=== PATIENT | male | born 1985 | race African-American/Black ===

== ENCOUNTER → 2019-02-09 | Outpatient (CLI) | payer BC ==
[~2019-02-09] MED LIST: AMLO1CAP12 PO; LORA-705 PO
== END | disposition home or self-care (01) ==
LOC: SHCH 13:54
PROVIDERS: ATTEND Internal Medicine Cardiovascular Disease
DX: I11.9 Hypertensive heart disease without heart failure (principal)
CPT/HCPCS: 93306

== ENCOUNTER 2020-12-16 18:11 | Observation (INO) | payer BC ==
[~2020-12-16] VITALS: Ht 185.4 cm; Wt 131.7 kg
[~2020-12-16 18:11] MED LIST changes: +AMLO-104 PO; -AMLO1CAP12 PO; +LORA-699 PO; -LORA-705 PO
[2020-12-16] MEDS ORDERED: TETANUS/DIPHTHERIA TOXOID [ADULT] 0.5 ML VIAL IM ONE (19:04)
[2020-12-16] MEDS ORDERED: CEFAZOLIN SODIUM 1 GM VIAL ONE (19:04)
[2020-12-16] MEDS ORDERED: 0.9%NACL 100ML 100 ML IV ONE (19:08)
[2020-12-16 19:19] LABS: CREATININE 1.5 mg/dL (0.5-1.5); POTASSIUM 3.1 mmol/L (3.5-5.1)
[2020-12-16 19:20] LABS: BASOPHILS % (AUTO) 0.8 % (0.0-5.0); EOSINOPHILS % (AUTO) 2.6 % (0.0-8.0); LYMPHOCYTES % (AUTO) 23.4 % (21.0-51.0); MEAN CORPUSCULAR HEMOGLOBIN 29.9 pg (27.0-33.0); MEAN CORPUSCULAR HGB CONC 32.7 g/dL (32.0-36.0); MEAN CORPUSCULAR VOLUME 91.5 fL (79-99); MONOCYTES % (AUTO) 6.2 % (3.0-13.0); NEUTROPHILS % (AUTO) 66.7 % (40.0-77.0); PLATELET COUNT (AUTO) 193 K/uL (130-400); RED BLOOD CELL COUNT(AUTO) 4.81 MIL/uL (4.50-6.20); RED CELL DISTRIBUTION WIDTH 14.7 % (11.0-15.5); WHITE BLOOD COUNT (AUTO) 7.7 K/uL (4.8-10.8)
[2020-12-16 19:23] LABS: BILIRUBIN,TOTAL 0.3 mg/dL (0.2-1.0); TOTAL PROTEIN, SERUM 7.8 g/dL (6.0-8.3)
[2020-12-16] MEDS ORDERED: POTASSIUM BICARB/CIT AC 25 MEQ TABLET.EFF ONE (20:06)
[2020-12-16] MEDS ORDERED: ACETAMINOPHEN 325 MG TAB PO PRN ×2 (21:45)
[2020-12-16] MEDS ORDERED: ONDANSETRON 4MG INJ IV PRN (21:45)
[2020-12-16] MEDS: CEFAZOLIN SODIUM 1 GM VIAL IVP SCH (22:00)
[2020-12-16] MEDS ORDERED: ONDANSETRON 4MG INJ ONE (22:33)
[2020-12-16] MEDS ORDERED: MORPHINE 2 MG SYG ONE (22:33)
[2020-12-17] VITALS (20 sets, daily range): BP systolic 137–184; BP diastolic 86–119
[2020-12-17] MEDS ORDERED: LABETALOL 20MG VIAL IV PRN (01:45)
[2020-12-17] MEDS ORDERED: 0.9%NACL 1000ML 1,000 ML IV ONE (02:08)
[2020-12-17] MEDS ORDERED: MORPHINE 4 MG SYG ONE (03:18)
[2020-12-17] MEDS: MORPHINE 2 MG SYG IV PRN ×2 (03:25→22:09)
[2020-12-17] MEDS ORDERED: AMIL5TAB8 PO (04:38)
[2020-12-17] MEDS ORDERED: BUPR-49 PO (04:38)
[2020-12-17] MEDS ORDERED: TRAM50TA4 PO (04:38)
[2020-12-17] MEDS ORDERED: ROSU40TA21 PO (04:38)
[2020-12-17] MEDS ORDERED: GABA300S PO (04:38)
[2020-12-17] MEDS ORDERED: CHLO50TA PO (04:38)
[2020-12-17] MEDS ORDERED: AMLO-258 PO (04:38)
[2020-12-17] MEDS ORDERED: CARV12.511 PO (04:38)
[2020-12-17 06:14] LABS: BASOPHILS % (AUTO) 0.7 % (0.0-5.0); EOSINOPHILS % (AUTO) 2.2 % (0.0-8.0); HEMATOCRIT 40.2 % (42-54); LYMPHOCYTES % (AUTO) 36.3 % (21.0-51.0); MEAN CORPUSCULAR HEMOGLOBIN 30.3 pg (27.0-33.0); MEAN CORPUSCULAR HGB CONC 32.8 g/dL (32.0-36.0); MEAN CORPUSCULAR VOLUME 92.4 fL (79-99); MONOCYTES % (AUTO) 6.6 % (3.0-13.0); NEUTROPHILS % (AUTO) 54.1 % (40.0-77.0); PLATELET COUNT (AUTO) 163 K/uL (130-400); RED BLOOD CELL COUNT(AUTO) 4.35 MIL/uL (4.50-6.20); RED CELL DISTRIBUTION WIDTH 14.8 % (11.0-15.5); WHITE BLOOD COUNT (AUTO) 6.8 K/uL (4.8-10.8)
[2020-12-17 06:30] LABS: ALBUMIN 3.3 g/dL (3.5-5.0); BILIRUBIN,TOTAL 0.3 mg/dL (0.2-1.0); CREATININE 1.1 mg/dL (0.5-1.5); TOTAL PROTEIN, SERUM 6.6 g/dL (6.0-8.3)
[2020-12-17] MEDS: CEFAZOLIN SODIUM 1 GM VIAL IVP SCH ×3 (06:53→22:05)
[2020-12-17] MEDS: INSULIN HUMULIN R 100 UNIT/ML 3ML SQ SCH ×4 (07:30→21:00)
[2020-12-17] MEDS: 0.9%NACL 1000ML 1,000 ML IV SCH ×3 (07:30→22:07)
[2020-12-17] MEDS: FAMOTIDINE 20MG VIAL IV SCH ×2 (09:37→22:06)
[2020-12-17] MEDS ORDERED: POTASSIUM CHLORIDE 20MEQ/100ML 100 ML IV PRN (12:30)
[2020-12-17] MEDS ORDERED: KCL 20 MEQ ERTAB PO PRN (12:30)
[2020-12-17] MEDS ORDERED: POTASSIUM CHLORIDE 10% ELIXIR 20 MEQ/15 ML UDCUP PO PRN (12:30)
[2020-12-17] MEDS ORDERED: LIDOCAINE HCL-MPF 1% 2ML VIAL ONE (14:24)
[2020-12-17] MEDS: LIDOCAINE HCL-MPF 1% 2ML VIAL IV SCH ×2 (16:30→21:00)
[2020-12-17] MEDS ORDERED: MIDAZOLAM HCL 1 MG/ML 2ML VIAL ONE (17:59)
[2020-12-17] MEDS ORDERED: FENTANYL CITRATE PF 50 MCG/1 ML 2ML VIAL ONE (18:01)
[2020-12-17] MEDS ORDERED: PROPOFOL 10 MG/ML 20ML VIAL IV ONE (18:09)
[2020-12-17] MEDS ORDERED: ONDANSETRON 4MG INJ ONE (18:43)
[2020-12-17] MEDS ORDERED: ATORVASTATIN 40 MG TABLET PO SCH (21:00)
[2020-12-17] MEDS ORDERED: GABAPENTIN 300 MG CAPSULE PO SCH (21:00)
[2020-12-17] MEDS: CARVEDILOL 12.5 MG TABLET PO SCH (22:06)
[2020-12-18] VITALS (7 sets, daily range): BP systolic 133–170; BP diastolic 68–110
[2020-12-18] MEDS: MORPHINE 2 MG SYG IV PRN (02:39)
[2020-12-18] MEDS: CEFAZOLIN SODIUM 1 GM VIAL IVP SCH ×2 (06:28→13:43)
[2020-12-18] MEDS: INSULIN HUMULIN R 100 UNIT/ML 3ML SQ SCH ×2 (06:30→11:30)
[2020-12-18] MEDS: 0.9%NACL 1000ML 1,000 ML IV SCH (08:00)
[2020-12-18] MEDS: CARVEDILOL 12.5 MG TABLET PO SCH (08:15)
[2020-12-18] MEDS ORDERED: AMLODIPINE 5 MG TAB PO SCH (09:00)
[2020-12-18] MEDS ORDERED: AMILORIDE 5MG TAB PO SCH (09:00)
[2020-12-18] MEDS ORDERED: BUPROPION HCL 150 MG TABLET.SA PO SCH (09:00)
== END 2020-12-18 15:40 | disposition home or self-care (01) ==
LOC: EDH 18:11 → EDHIP 21:55 → 3CH 12-17 02:08
PROVIDERS: ADMIT Hospitalist; ATTEND Hospitalist
DX: S63.124A Dislocation of interphalangeal joint of right thumb, initial encounter (principal); E87.6 Hypokalemia; E11.65 Type 2 diabetes mellitus with hyperglycemia; I10 Essential (primary) hypertension; E78.5 Hyperlipidemia, unspecified; E78.00 Pure hypercholesterolemia, unspecified; Z23 Encounter for immunization; Z79.899 Other long term (current) drug therapy; Z91.041 Radiographic dye allergy status; X50.9XXA Other and unspecified overexertion or strenuous movements or postures, initial encounter; Y93.89 Activity, other specified; Y92.89 Other specified places as the place of occurrence of the external cause
CPT/HCPCS: 11010; 26785; 29130; 36415 ×2; 71045; 73130; 73140 ×2; 80053 ×2; 82948 ×6; 84484; 85025 ×2; 90471; 90714; 93005; 96361 ×2; 96365; 96366; 96372; 96375 ×2; 96376 ×2; 99285; A4606; A4649; A6223; A6445; G0378 ×40; J0690 ×6; J1815; J2250; J2270; J2405 ×2; J2704; J3010; J3480; J3490 ×5; J7030; J7120

== ENCOUNTER 2022-12-31 23:49 | Emergency (ER) | payer BC ==
[~2022-12-31] VITALS: Ht 185.4 cm; Wt 128.4 kg
[~2022-12-31 23:49] MED LIST changes: +AMIL5TAB8 PO; -AMLO-104 PO; +AMLO-258 PO; +BUPR-49 PO; +CARV12.511 PO; +CHLO50TA PO; +GABA300S3 PO; -LORA-699 PO; +ROSU40TA21 PO; +TRAM50TA4 PO
[2023-01-01] MEDS ORDERED: IBUP-1493 PO (02:58)
[2023-01-01] MEDS ORDERED: CEPH500B PO (02:58)
[2023-01-01] MEDS ORDERED: DIPH,PERTUSS(ACELL),TET VAC/PF 0.5 ML VIAL IM ONE (03:00)
[2023-01-01] MEDS ORDERED: LIDOCAINE HCL 1% 20 ML VIAL INJ SCH (03:00)
[2023-01-01 03:20] VITALS: BP 136/78
[2023-01-01] MEDS ORDERED: TETANUS/DIPHTHERIA TOXOID [ADULT] 0.5 ML VIAL IM ONE (04:00)
== END 2023-01-01 04:09 | disposition home or self-care (01) ==
LOC: EDH 23:49
DX: S61.211A Laceration without foreign body of left index finger without damage to nail, initial encounter (principal); W26.0XXA Contact with knife, initial encounter; Y93.89 Activity, other specified; Y92.89 Other specified places as the place of occurrence of the external cause; Y99.8 Other external cause status; E11.9 Type 2 diabetes mellitus without complications; E78.00 Pure hypercholesterolemia, unspecified; I10 Essential (primary) hypertension; Z79.1 Long term (current) use of non-steroidal anti-inflammatories (NSAID); Z88.8 Allergy status to other drugs, medicaments and biological substances
CPT/HCPCS: 12002; 73130; 90714; 90715